=== PATIENT | female | born 1955 | race Caucasian/White ===

== ENCOUNTER → 2017-04-22 | Outpatient (CLI) | payer OTHER ==
[~2017-04-22] MED LIST: DICLOFENAC POTA50 MG PO; LIPITOR10 MG PO; MAXALT10 MG PO; VITAMIN D32000 UNI1 PO
== END | disposition home or self-care (01) ==
DX: R26.2 Difficulty in walking, not elsewhere classified (principal); M16.11 Unilateral primary osteoarthritis, right hip; M25.551 Pain in right hip; M25.651 Stiffness of right hip, not elsewhere classified
CPT/HCPCS: 97110 GP; 97150 GO; 97161 GP; 97165 GO

== ENCOUNTER 2017-05-05 05:32 | Inpatient (IN) | payer OTHER ==
[~2017-05-05] VITALS: Ht 160 cm; Wt 70.0 kg
[~2017-05-05 05:32] MED LIST changes: +IRON325 M1 PO; +NORCO 5/3251 TABLET PO; +ZYRTEC10 M2 PO
[2017-05-05 06:09] VITALS: BP 142/66
[2017-05-05 10:26] VITALS: BP 110/59
[2017-05-05 10:44] LABS: MCV 97.3 FL (83-99)
[2017-05-05 15:48] VITALS: BP 133/63
[2017-05-05 18:19] VITALS: BP 111/58
[2017-05-05 20:08] VITALS: BP 102/63
[2017-05-06 00:08] VITALS: BP 123/66
[2017-05-06 04:21] VITALS: BP 127/62
[2017-05-06 06:42] LABS: MCV 91.5 FL (83-99)
[2017-05-06 07:04] LABS: ANION GAP 6 MEQ/L (2-14); CHLORIDE 103 MEQ/L (99-109); GFR ESTIMATE (CALCULATED) > 59 mL/min/; GLUCOSE 115 mg/dL (70-99); POTASSIUM 3.6 MEQ/L (3.7-5.4); SAMPLE HEMOLYSIS CHECK 0; SAMPLE ICTERIC CHECK 0; SAMPLE LIPEMIA CHECK 0; SODIUM 137 MEQ/L (136-147); UREA NITROGEN (BUN) 9 mg/dL (9-23)
[2017-05-06 07:12] LABS: INTER. NORMALIZED RATIO 1.1; PROTHROMBIN TIME 10.7 (9.2-11.2)
[2017-05-06 08:34] VITALS: BP 102/57
[2017-05-06 11:31] VITALS: BP 107/54
[2017-05-06 15:43] VITALS: BP 140/65
[2017-05-06 20:00] VITALS: BP 125/62
[2017-05-07 00:10] VITALS: BP 117/56
[2017-05-07 04:05] VITALS: BP 120/56
[2017-05-07 05:54] LABS: HEMATOCRIT 30.4 % (36.0-46.0); MCV 90.7 FL (83-99)
[2017-05-07 06:13] LABS: INTER. NORMALIZED RATIO 1.3; PROTHROMBIN TIME 12.8 (9.2-11.2)
[2017-05-07 06:16] LABS: ANION GAP 7 MEQ/L (2-14); CHLORIDE 105 MEQ/L (99-109); GFR ESTIMATE (CALCULATED) > 59 mL/min/; GLUCOSE 111 mg/dL (70-99); SAMPLE HEMOLYSIS CHECK 0; SAMPLE ICTERIC CHECK 0; SAMPLE LIPEMIA CHECK 0; SODIUM 140 MEQ/L (136-147); UREA NITROGEN (BUN) 8 mg/dL (9-23)
[2017-05-07 08:00] VITALS: BP 99/53
[2017-05-07] MEDS ORDERED: OXYCODONE HCL5 MG PO ×2 (08:04→08:06)
[2017-05-07] MEDS ORDERED: CELECOXIB200 MG PO ×2 (08:04→08:05)
[2017-05-07] MEDS ORDERED: DOCUSATE SODIU100 MG PO (08:04)
[2017-05-07] MEDS ORDERED: WARFARIN SODIU2.5 MG PO (08:05)
[2017-05-07 12:17] VITALS: BP 117/60
== END 2017-05-07 15:41 | disposition home health service (06) | DRG 470 ==
LOC: 2SOUTH 05:32 → 3WEST 10:08 → 2SOUTH 12:01 → 3WEST 05-07 15:41
PROVIDERS: Orthopaedic Surgery; Physician Assistant
PROC: 0SR902Z Replacement of Right Hip Joint with Metal on Polyethylene Synthetic Substitute, Open Approach (ICD-10-PCS; principal; 2017-05-05)
DX: M16.11 Unilateral primary osteoarthritis, right hip (principal); E78.00 Pure hypercholesterolemia, unspecified; F17.200 Nicotine dependence, unspecified, uncomplicated; J30.2 Other seasonal allergic rhinitis; G43.909 Migraine, unspecified, not intractable, without status migrainosus
CPT/HCPCS: 80048; 85014; 85018; 85610; J0131; J0690; J1100; J1885; J2250; J2405; J3010; J7050; J7120; S0020